=== PATIENT | female | born 1970 | race Caucasian/White ===

== ENCOUNTER 2021-08-05 21:57 | Inpatient (IN) ==
[2021-08-06] MEDS ORDERED: Ondansetron 4 MG/2 ML VIAL IVP PRN (02:01)
[2021-08-06] MEDS ORDERED: Naloxone 0.4 MG/ML INJ IVP PRN (02:01)
[2021-08-06] MEDS ORDERED: Melatonin 3 MG TABLET PO PRN (02:01)
[2021-08-06] MEDS ORDERED: *HR* OxyCODONE Immed Rel 5 MG TABLET PO PRN (02:01)
[2021-08-06] MEDS ORDERED: *HR* Promethazine 25 MG/ML VIAL IM PRN (02:01)
[2021-08-06] MEDS ORDERED: *HR* HYDROcodone/Acet 5/325 mg TABLET PO PRN (02:01)
[2021-08-06] MEDS ORDERED: Remdesivir 200 MG in 0.9 % Sodium Chloride 100 ML IVPB ONE (04:00)
[2021-08-06] MEDS: Acetaminophen 325 MG TABLET PO PRN ×3 (04:20→21:54)
[2021-08-06] MEDS: *HR* Enoxaparin 40 MG/0.4 ML SYRINGE SQ SCH (05:16)
[2021-08-06 06:33] LABS: Albumin/Globulin Ratio 1.1 (1.1-2.2); Bilirubin,Total 0.5 mg/dL (0.3-1.0); Calcium 8.5 mg/dL (8.6-10.3); Globulin 3.7 g/dL (2.4-3.5); Magnesium 2.1 mg/dL (1.6-2.6); Potassium 3.8 mEq/L (3.5-5.1); Total Protein 7.7 g/dL (6.4-8.9)
[2021-08-06 06:48] LABS: Albumin/Globulin Ratio 1.1 (1.1-2.2); Bilirubin,Direct 0.3 mg/dL (0.0-0.2); Bilirubin,Indirect 0.2 mg/dL (0.0-1.0); Bilirubin,Total 0.5 mg/dL (0.3-1.0); Globulin 3.7 g/dL (2.4-3.5); Total Protein 7.7 g/dL (6.4-8.9)
[2021-08-06 07:21] LABS: Basophils % 0.2 %; Hematocrit 45.4 % (35.3-44.9); Hemoglobin 13.8 g/dL (11.5-15.4); Immature Granulocytes % 0.7 % (0-4); Lymphocytes # 0.6 K/mcL (0.6-4.6); Lymphocytes % 7.2 %; Mean Corpuscular HGB Conc 30.4 g/dL (31.6-35.5); Mean Corpuscular Hemoglobin 27.5 pg (28.0-33.3); Mean Corpuscular Volume 90.4 fL (83.0-100.0); Mean Platelet Volume 10.1 fL (9.4-12.4); Monocytes # 0.2 K/mcL (0.0-1.3); Monocytes % 2.9 %; Neutrophils # 7.4 K/mcL (1.6-8.9); Platelet Count 209 K/mcL (140-400); Red Blood Count 5.02 M/mcL (3.82-4.97); Red Cell Distribution Width 15.8 % (11.5-14.5); White Blood Count 8.3 K/mcL (4.3-11.1)
[2021-08-06 07:23] LABS: INR 1.2
[2021-08-06] MEDS: Dexamethasone Sodium Phos/PF 10 MG/ML VIAL IVP SCH (08:07)
[2021-08-06] MEDS ORDERED: Furosemide 40 MG/4 ML VIAL IVP ONE (08:21)
[2021-08-06] MEDS: Aspirin 81 MG TAB.CHEW PO SCH (08:33)
[2021-08-06] MEDS ORDERED: Dexamethasone Sodium Phos/PF 10 MG/ML VIAL IVP SCH (09:00)
[2021-08-06] MEDS ORDERED: Lidocaine -MPF 1% 5 ML AMPUL INFILT ONE (13:07)
[2021-08-07] MEDS: Remdesivir 100 MG in 0.9 % Sodium Chloride 100 ML IVPB SCH (04:45)
[2021-08-07] MEDS: Acetaminophen 325 MG TABLET PO PRN (05:06)
[2021-08-07] MEDS: *HR* Enoxaparin 40 MG/0.4 ML SYRINGE SQ SCH (05:17)
[2021-08-07] MEDS: Dexamethasone Sodium Phos/PF 10 MG/ML VIAL IVP SCH (08:37)
[2021-08-07] MEDS: Cholecalciferol (D-3) 1,000 UNIT (25MCG) TABLET PO SCH (08:38)
[2021-08-07] MEDS: Aspirin 81 MG TAB.CHEW PO SCH (08:38)
[2021-08-07] MEDS ORDERED: Saline Nasal Spray 44 ML BOTTLE NS PRN (11:28)
[2021-08-07 11:44] LABS: Albumin 3.9 g/dL (3.5-5.7); Bilirubin,Direct 0.2 mg/dL (0.0-0.2); Bilirubin,Indirect 0.3 mg/dL (0.0-1.0); Bilirubin,Total 0.5 mg/dL (0.3-1.0); Globulin 3.9 g/dL (2.4-3.5); Total Protein 7.8 g/dL (6.4-8.9)
[2021-08-07 13:34] LABS: Hematocrit 47.6 % (35.3-44.9); Hemoglobin 14.5 g/dL (11.5-15.4); Mean Corpuscular HGB Conc 30.5 g/dL (31.6-35.5); Mean Corpuscular Hemoglobin 27.9 pg (28.0-33.3); Mean Corpuscular Volume 91.7 fL (83.0-100.0); Mean Platelet Volume 10.7 fL (9.4-12.4); Platelet Count 255 K/mcL (140-400); Red Blood Count 5.19 M/mcL (3.82-4.97); Red Cell Distribution Width 15.9 % (11.5-14.5); White Blood Count 6.3 K/mcL (4.3-11.1)
[2021-08-07 13:43] LABS: Calcium 8.7 mg/dL (8.6-10.3); Magnesium 2.4 mg/dL (1.6-2.6); Potassium 4.4 mEq/L (3.5-5.1)
[2021-08-07] MEDS ORDERED: *HR* Succinylcholine 200 MG/10 ML VIAL IVP ONE (14:21)
[2021-08-07] MEDS ORDERED: *HR* Propofol 200 MG/20 ML VIAL IVP ONE (14:21)
[2021-08-07] MEDS ORDERED: *HR* Etomidate 20 MG/10 ML AMPUL IVP ONE ×2 (14:21→15:59)
[2021-08-07] MEDS ORDERED: *HR* Midazolam HCl 5 MG/5 ML VIAL IVP ONE ×2 (14:21→16:00)
[2021-08-07] MEDS ORDERED: *HR* FentaNYL (PF) 100 MCG/2 ML VIAL IVP ONE (15:55)
[2021-08-07] MEDS ORDERED: Artificial Tears SOLN 15 ML BOTTLE BOTH EYES PRN (16:24)
[2021-08-07] MEDS: FentaNYL (PF) 1,000 MCG/100 ML IV.SOLN IVC SCH ×2 (16:26→22:16)
[2021-08-07] MEDS ORDERED: *HR* Heparin 5,000 UNIT/ML VIAL IVP PRN ×2 (16:27)
[2021-08-07 16:35] LABS: ABG Base Excess 11 mEq/L (-2 to 3); ABG HCO3 43 mEq/L (21-27); ABG Oxygen Saturation 74 % (95-98); ABG PCO2 86 mmHg (35-45); ABG PH 7.31 pH Units (7.32-7.45); ABG PO2 46 mmHg (85-104); ABG TCO2 46 mEq/L (20-26)
[2021-08-07] MEDS: Heparin 25,000 UNIT/250 ML 25,000 UNIT/250 ML IV.SOLN IVC SCH (17:10)
[2021-08-07] MEDS: Pantoprazole 40 MG VIAL IVP SCH (17:10)
[2021-08-07] MEDS: Norepinephrine 4 MG/254 ML IV.SOLN IVC SCH (17:11)
[2021-08-07] MEDS ORDERED: 0.9 % Sodium Chloride 1,000 ML ONE (17:16)
[2021-08-07 17:50] LABS: Hematocrit 45.4 % (35.3-44.9); Hemoglobin 14.2 g/dL (11.5-15.4); Mean Corpuscular HGB Conc 31.3 g/dL (31.6-35.5); Mean Corpuscular Hemoglobin 28.3 pg (28.0-33.3); Mean Corpuscular Volume 90.4 fL (83.0-100.0); Mean Platelet Volume 10.4 fL (9.4-12.4); Platelet Count 268 K/mcL (140-400); Red Blood Count 5.02 M/mcL (3.82-4.97); Red Cell Distribution Width 15.7 % (11.5-14.5); White Blood Count 6.1 K/mcL (4.3-11.1)
[2021-08-07] MEDS ORDERED: *HR* Enoxaparin 40 MG/0.4 ML SYRINGE SQ SCH (18:00)
[2021-08-07 18:05] LABS: Heparin anti-factor XA UFH 0.08 IU/mL (0.30-0.70); INR 1.1; Prothrombin Time 12.1 Seconds (9.4-12.1)
[2021-08-07] MEDS: Midazolam HCl 50 MG/100 ML IV.SOLN IVC SCH (18:10)
[2021-08-07 18:36] LABS: ABG Base Excess 8 mEq/L (-2 to 3); ABG HCO3 32 mEq/L (21-27); ABG Oxygen Saturation 75 % (95-98); ABG PCO2 41 mmHg (35-45); ABG PO2 37 mmHg (85-104); ABG TCO2 33 mEq/L (20-26); Blood Gas VT 420 cc
[2021-08-07] MEDS: Furosemide 40 MG/4 ML VIAL IVP SCH (19:37)
[2021-08-07] MEDS: Chlorhexidine Rinse 15 ML MOUTHWASH MM SCH (19:37)
[2021-08-07] MEDS: Artificial Tears SOLN 15 ML BOTTLE BOTH EYES SCH ×2 (19:37→23:19)
[2021-08-08] MEDS: Norepinephrine 4 MG/254 ML IV.SOLN IVC SCH ×4 (01:48→21:19)
[2021-08-08] MEDS: Remdesivir 100 MG in 0.9 % Sodium Chloride 100 ML IVPB SCH (02:15)
[2021-08-08 03:49] LABS: Hematocrit 43.7 % (35.3-44.9); Hemoglobin 13.7 g/dL (11.5-15.4); Mean Corpuscular HGB Conc 31.4 g/dL (31.6-35.5); Mean Corpuscular Hemoglobin 27.7 pg (28.0-33.3); Mean Corpuscular Volume 88.5 fL (83.0-100.0); Mean Platelet Volume 10.3 fL (9.4-12.4); Platelet Count 291 K/mcL (140-400); Red Blood Count 4.94 M/mcL (3.82-4.97); Red Cell Distribution Width 15.4 % (11.5-14.5)
[2021-08-08 04:07] LABS: Albumin 2.8 g/dL (3.5-5.7); Bilirubin,Direct 0.2 mg/dL (0.0-0.2); Bilirubin,Indirect 0.4 mg/dL (0.0-1.0); Bilirubin,Total 0.6 mg/dL (0.3-1.0); Globulin 2.9 g/dL (2.4-3.5); Total Protein 5.7 g/dL (6.4-8.9)
[2021-08-08] MEDS: Artificial Tears SOLN 15 ML BOTTLE BOTH EYES SCH ×8 (04:10→21:20)
[2021-08-08 05:44] LABS: ABG Base Excess 10 mEq/L (-2 to 3); ABG HCO3 32 mEq/L (21-27); ABG Oxygen Saturation 83 % (95-98); ABG PCO2 34 mmHg (35-45); ABG PH 7.58 pH Units (7.32-7.45); ABG PO2 39 mmHg (85-104); ABG TCO2 33 mEq/L (20-26); Blood Gas Modality AF; Blood Gas VT 420 cc
[2021-08-08] MEDS: Heparin 25,000 UNIT/250 ML 25,000 UNIT/250 ML IV.SOLN IVC SCH ×3 (06:20→21:20)
[2021-08-08 06:58] LABS: Albumin 3.7 g/dL (3.5-5.7); Albumin/Globulin Ratio 1.1 (1.1-2.2); Bilirubin,Total 0.8 mg/dL (0.3-1.0); Calcium 8.6 mg/dL (8.6-10.3); Globulin 3.5 g/dL (2.4-3.5); Magnesium 2.1 mg/dL (1.6-2.6); Potassium 3.8 mEq/L (3.5-5.1); Total Protein 7.2 g/dL (6.4-8.9)
[2021-08-08] MEDS: Dexamethasone Sodium Phos/PF 10 MG/ML VIAL IVP SCH (07:10)
[2021-08-08] MEDS: Pantoprazole 40 MG VIAL IVP SCH (07:10)
[2021-08-08] MEDS: Furosemide 40 MG/4 ML VIAL IVP SCH ×2 (07:10→20:13)
[2021-08-08] MEDS: Cholecalciferol (D-3) 1,000 UNIT (25MCG) TABLET PO SCH (07:10)
[2021-08-08] MEDS: Chlorhexidine Rinse 15 ML MOUTHWASH MM SCH ×2 (07:10→20:13)
[2021-08-08] MEDS: FentaNYL (PF) 1,000 MCG/100 ML IV.SOLN IVC SCH ×3 (08:20→21:18)
[2021-08-08] MEDS: Cisatracurium 200 MG in 0.9 % Sodium Chloride 180 ML IVC SCH ×3 (09:53→20:13)
[2021-08-08] MEDS: Midazolam HCl 50 MG/100 ML IV.SOLN IVC SCH ×2 (09:55→19:05)
[2021-08-08 14:12] LABS: ABG Base Excess 9 mEq/L (-2 to 3); ABG HCO3 31 mEq/L (21-27); ABG Oxygen Saturation 92 % (95-98); ABG PCO2 34 mmHg (35-45); ABG PH 7.57 pH Units (7.32-7.45); ABG PO2 55 mmHg (85-104); ABG TCO2 32 mEq/L (20-26); Blood Gas VT 420 cc
[2021-08-08 17:33] LABS: ABG Base Excess 9 mEq/L (-2 to 3); ABG HCO3 33 mEq/L (21-27); ABG Oxygen Saturation 91 % (95-98); ABG PCO2 41 mmHg (35-45); ABG PH 7.51 pH Units (7.32-7.45); ABG PO2 54 mmHg (85-104); ABG TCO2 34 mEq/L (20-26); Blood Gas VT 400 cc
[2021-08-09] MEDS: Cisatracurium 200 MG in 0.9 % Sodium Chloride 180 ML IVC SCH ×5 (01:07→21:28)
[2021-08-09] MEDS: Remdesivir 100 MG in 0.9 % Sodium Chloride 100 ML IVPB SCH (02:01)
[2021-08-09] MEDS: FentaNYL (PF) 1,000 MCG/100 ML IV.SOLN IVC SCH ×3 (03:07→19:54)
[2021-08-09] MEDS: Midazolam HCl 50 MG/100 ML IV.SOLN IVC SCH ×2 (03:07→15:42)
[2021-08-09 03:25] LABS: VBG Ionized Calcium 0.95 mmol/L (1.15-1.35)
[2021-08-09 03:27] LABS: Basophils % 0.1 %; Hematocrit 44.9 % (35.3-44.9); Hemoglobin 14.2 g/dL (11.5-15.4); Lymphocytes # 0.5 K/mcL (0.6-4.6); Lymphocytes % 6.8 %; Mean Corpuscular HGB Conc 31.6 g/dL (31.6-35.5); Mean Corpuscular Hemoglobin 27.4 pg (28.0-33.3); Mean Corpuscular Volume 86.7 fL (83.0-100.0); Mean Platelet Volume 9.9 fL (9.4-12.4); Monocytes # 0.5 K/mcL (0.0-1.3); Monocytes % 6.6 %; Neutrophils # 6.8 K/mcL (1.6-8.9); Nucleated Red Blood Cells 0.3 /100 WBC (0); Platelet Count 285 K/mcL (140-400); Red Blood Count 5.18 M/mcL (3.82-4.97); Red Cell Distribution Width 15.8 % (11.5-14.5); Segmented Neutrophils % 85.5 %
[2021-08-09 03:41] LABS: Alanine Aminotransferase 32 Units/L (7-52); Albumin 3.4 g/dL (3.5-5.7); Albumin/Globulin Ratio 0.9 (1.1-2.2); Alkaline Phosphatase 59 Units/L (34-104); Aspartate Amino Transferase 53 Units/L (13-39); BUN/Creatinine Ratio 26 (6-26); Bilirubin,Direct 0.6 mg/dL (0.0-0.2); Bilirubin,Indirect 0.4 mg/dL (0.0-1.0); Blood Urea Nitrogen 30 mg/dL (6-20); Calcium 7.9 mg/dL (8.6-10.3); Carbon Dioxide 35 mEq/L (23-29); Chloride 94 mEq/L (98-107); Globulin 3.6 g/dL (2.4-3.5); Glucose 199 mg/dL (70-105); Osmolality,Calculated 300 (280-300); Potassium 3.1 mEq/L (3.5-5.1); Sodium 139 mEq/L (136-145); eGFR For African Americans > 60 (> 60); eGFR For Non-African Americans 50 (> 60)
[2021-08-09 03:57] LABS: Ferritin 105 ng/mL (10-120)
[2021-08-09 04:07] LABS: INR 1.1; Prothrombin Time 12.1 Seconds (9.4-12.1)
[2021-08-09] MEDS ORDERED: Potassium Chloride Elixir 20 MEQ/15 ML UDC GTUBE ONE (04:28)
[2021-08-09 04:53] LABS: ABG Base Excess 9 mEq/L (-2 to 3); ABG HCO3 37 mEq/L (21-27); ABG Oxygen Saturation 90 % (95-98); ABG PCO2 57 mmHg (35-45); ABG PH 7.41 pH Units (7.32-7.45); ABG PO2 59 mmHg (85-104); ABG TCO2 38 mEq/L (20-26); Blood Gas Modality AF; Blood Gas VT 400 cc
[2021-08-09] MEDS ORDERED: Calcium Chloride 2,000 MG in 0.9 % Sodium Chloride 100 ML IVPB ONE (05:15)
[2021-08-09] MEDS: Dexamethasone Sodium Phos/PF 10 MG/ML VIAL IVP SCH (07:40)
[2021-08-09] MEDS: Pantoprazole 40 MG VIAL IVP SCH (07:40)
[2021-08-09] MEDS: Artificial Tears SOLN 15 ML BOTTLE BOTH EYES SCH ×5 (07:40→23:11)
[2021-08-09] MEDS: Cholecalciferol (D-3) 1,000 UNIT (25MCG) TABLET PO SCH (07:40)
[2021-08-09] MEDS: Furosemide 40 MG/4 ML VIAL IVP SCH ×2 (07:40→20:01)
[2021-08-09] MEDS: Chlorhexidine Rinse 15 ML MOUTHWASH MM SCH ×2 (07:40→20:01)
[2021-08-09] MEDS ORDERED: Calcium Gluconate 1gm/50mL 1 GM/50 ML BAG IVPB PRN (10:20)
[2021-08-09] MEDS: Heparin 25,000 UNIT/250 ML 25,000 UNIT/250 ML IV.SOLN IVC SCH (11:28)
[2021-08-09] MEDS: Norepinephrine 4 MG/254 ML IV.SOLN IVC SCH ×2 (15:05→18:17)
[2021-08-09] MEDS: Potassium Chloride Elixir 20 MEQ/15 ML UDC GTUBE SCH (17:51)
[2021-08-09] MEDS ORDERED: Dextrose Gel 15 GM/37.5 ML TUBE PO PRN ×2 (22:32)
[2021-08-09] MEDS ORDERED: D5% in Water 1,000 ML IVC PRN (22:32)
[2021-08-09] MEDS ORDERED: *HR* Dextrose 50 % in Water (Syg) 50 ML SYRINGE IVP PRN (22:32)
[2021-08-09] MEDS: Insulin LISPRO 300 UNITS/3 ML VIAL SUBQ SCH (23:11)
[2021-08-10] MEDS: Cisatracurium 400 MG in 0.9 % Sodium Chloride 360 ML IVC SCH ×2 (01:16→13:16)
[2021-08-10] MEDS: Heparin 25,000 UNIT/250 ML 25,000 UNIT/250 ML IV.SOLN IVC SCH ×3 (01:17→22:27)
[2021-08-10] MEDS: Midazolam HCl 50 MG/100 ML IV.SOLN IVC SCH ×2 (01:34→16:02)
[2021-08-10] MEDS: Remdesivir 100 MG in 0.9 % Sodium Chloride 100 ML IVPB SCH (02:01)
[2021-08-10] MEDS: Norepinephrine 4 MG/254 ML IV.SOLN IVC SCH ×3 (02:03→15:58)
[2021-08-10] MEDS: Artificial Tears SOLN 15 ML BOTTLE BOTH EYES SCH ×5 (03:03→19:30)
[2021-08-10 03:43] LABS: VBG Ionized Calcium 1.04 mmol/L (1.15-1.35)
[2021-08-10 03:53] LABS: Basophils # 0.1 K/mcL (0.0-0.2); Basophils % 0.4 %; Eosinophils # 0.1 K/mcL (0.0-0.6); Eosinophils % 0.8 %; Hematocrit 47.7 % (35.3-44.9); Hemoglobin 14.8 g/dL (11.5-15.4); Immature Granulocytes % 1.1 % (0-4); Lymphocytes # 0.7 K/mcL (0.6-4.6); Lymphocytes % 5.3 %; Mean Corpuscular Hemoglobin 27.4 pg (28.0-33.3); Mean Corpuscular Volume 88.2 fL (83.0-100.0); Mean Platelet Volume 10.2 fL (9.4-12.4); Monocytes # 0.7 K/mcL (0.0-1.3); Monocytes % 4.9 %; Neutrophils # 11.8 K/mcL (1.6-8.9); Platelet Count 306 K/mcL (140-400); Red Blood Count 5.41 M/mcL (3.82-4.97); Red Cell Distribution Width 16.2 % (11.5-14.5); Segmented Neutrophils % 87.5 %
[2021-08-10 03:55] LABS: White Blood Count 13.5 K/mcL (4.3-11.1)
[2021-08-10 04:08] LABS: ABG Base Excess 10 mEq/L (-2 to 3); ABG HCO3 38 mEq/L (21-27); ABG Oxygen Saturation 90 % (95-98); ABG PCO2 62 mmHg (35-45); ABG PH 7.39 pH Units (7.32-7.45); ABG PO2 61 mmHg (85-104); ABG TCO2 40 mEq/L (20-26); Blood Gas VT 400 cc
[2021-08-10 04:09] LABS: Alanine Aminotransferase 79 Units/L (7-52); Albumin 3.5 g/dL (3.5-5.7); Alkaline Phosphatase 59 Units/L (34-104); Aspartate Amino Transferase 98 Units/L (13-39); BUN/Creatinine Ratio 25 (6-26); Bilirubin,Total 1.2 mg/dL (0.3-1.0); Blood Urea Nitrogen 29 mg/dL (6-20); Calcium 8.3 mg/dL (8.6-10.3); Carbon Dioxide 36 mEq/L (23-29); Chloride 95 mEq/L (98-107); Globulin 3.5 g/dL (2.4-3.5); Glucose 185 mg/dL (70-105); Osmolality,Calculated 301 (280-300); Phosphorous 2.5 mg/dL (2.7-4.5); Potassium 3.6 mEq/L (3.5-5.1); Sodium 140 mEq/L (136-145); eGFR For African Americans > 60 (> 60); eGFR For Non-African Americans 50 (> 60)
[2021-08-10] MEDS: FentaNYL (PF) 1,000 MCG/100 ML IV.SOLN IVC SCH ×3 (05:07→20:11)
[2021-08-10] MEDS: Insulin LISPRO 300 UNITS/3 ML VIAL SUBQ SCH ×3 (05:19→17:03)
[2021-08-10] MEDS: Calcium Gluconate 1gm/50mL 1 GM/50 ML BAG IVPB SCH ×2 (05:19→06:20)
[2021-08-10] MEDS: Chlorhexidine Rinse 15 ML MOUTHWASH MM SCH ×2 (07:45→19:30)
[2021-08-10] MEDS: Dexamethasone Sodium Phos/PF 10 MG/ML VIAL IVP SCH (07:46)
[2021-08-10] MEDS: Pantoprazole 40 MG VIAL IVP SCH (07:46)
[2021-08-10] MEDS: Potassium Chloride Elixir 20 MEQ/15 ML UDC GTUBE SCH (07:46)
[2021-08-10] MEDS: Cholecalciferol (D-3) 1,000 UNIT (25MCG) TABLET PO SCH (07:47)
[2021-08-10] MEDS: Furosemide 40 MG/4 ML VIAL IVP SCH ×2 (07:47→19:30)
[2021-08-10 10:10] LABS: ABG Base Excess 12 mEq/L (-2 to 3); ABG HCO3 41 mEq/L (21-27); ABG Oxygen Saturation 83 % (95-98); ABG PCO2 66 mmHg (35-45); ABG PO2 49 mmHg (85-104); ABG TCO2 43 mEq/L (20-26); Blood Gas Modality AF; Blood Gas VT 270 cc
[2021-08-10] MEDS ORDERED: *HR* Atropine Sulfate 1 MG/10 ML SYRINGE ONE (23:33)
[2021-08-11] MEDS: Cisatracurium 400 MG in 0.9 % Sodium Chloride 360 ML IVC SCH ×2 (00:01→13:52)
[2021-08-11] MEDS: Artificial Tears SOLN 15 ML BOTTLE BOTH EYES SCH ×7 (00:03→23:03)
[2021-08-11] MEDS: Insulin LISPRO 300 UNITS/3 ML VIAL SUBQ SCH ×5 (00:03→23:03)
[2021-08-11] MEDS: FentaNYL (PF) 1,000 MCG/100 ML IV.SOLN IVC SCH ×5 (01:30→21:52)
[2021-08-11 04:13] LABS: ABG Base Excess 10 mEq/L (-2 to 3); ABG HCO3 37 mEq/L (21-27); ABG Oxygen Saturation 89 % (95-98); ABG PCO2 59 mmHg (35-45); ABG PH 7.41 pH Units (7.32-7.45); ABG PO2 57 mmHg (85-104); ABG TCO2 39 mEq/L (20-26); Blood Gas VT 270 cc
[2021-08-11 04:55] LABS: Heparin anti-factor XA UFH 0.39 IU/mL (0.30-0.70)
[2021-08-11 04:57] LABS: Basophils # 0.1 K/mcL (0.0-0.2); Basophils % 0.3 %; Eosinophils % 0.1 %; Hematocrit 49.3 % (35.3-44.9); Hemoglobin 15.7 g/dL (11.5-15.4); Immature Granulocytes % 2.6 % (0-4); Lymphocytes # 0.9 K/mcL (0.6-4.6); Lymphocytes % 4.9 %; Mean Corpuscular HGB Conc 31.8 g/dL (31.6-35.5); Mean Corpuscular Hemoglobin 28.2 pg (28.0-33.3); Mean Corpuscular Volume 88.7 fL (83.0-100.0); Mean Platelet Volume 10.4 fL (9.4-12.4); Monocytes # 0.8 K/mcL (0.0-1.3); Monocytes % 4.7 %; Neutrophils # 15.5 K/mcL (1.6-8.9); Nucleated Red Blood Cells 0.1 /100 WBC (0); Platelet Count 292 K/mcL (140-400); Red Blood Count 5.56 M/mcL (3.82-4.97); Red Cell Distribution Width 16.5 % (11.5-14.5); Segmented Neutrophils % 87.4 %; White Blood Count 17.7 K/mcL (4.3-11.1)
[2021-08-11 05:09] LABS: Calcium 8.5 mg/dL (8.6-10.3); Potassium 3.4 mEq/L (3.5-5.1)
[2021-08-11] MEDS: Cholecalciferol (D-3) 1,000 UNIT (25MCG) TABLET PO SCH (07:40)
[2021-08-11] MEDS: Chlorhexidine Rinse 15 ML MOUTHWASH MM SCH ×2 (07:40→19:42)
[2021-08-11] MEDS: Norepinephrine 4 MG/254 ML IV.SOLN IVC SCH ×3 (07:40→20:00)
[2021-08-11] MEDS: Potassium Chloride Elixir 20 MEQ/15 ML UDC GTUBE SCH (07:41)
[2021-08-11] MEDS: Pantoprazole 40 MG VIAL IVP SCH (07:41)
[2021-08-11] MEDS: Dexamethasone Sodium Phos/PF 10 MG/ML VIAL IVP SCH (07:41)
[2021-08-11] MEDS: Furosemide 40 MG/4 ML VIAL IVP SCH ×2 (07:41→19:43)
[2021-08-11] MEDS: Midazolam HCl 50 MG/100 ML IV.SOLN IVC SCH ×2 (07:42→22:25)
[2021-08-11] MEDS ORDERED: Potassium Phosphate 44 MEQ in 0.9 % Sodium Chloride 250 ML IVPB PRN (08:43)
[2021-08-11] MEDS: Heparin 25,000 UNIT/250 ML 25,000 UNIT/250 ML IV.SOLN IVC SCH (17:11)
[2021-08-11 19:08] LABS: Magnesium 1.6 mg/dL (1.6-2.6); Phosphorous 3.1 mg/dL (2.7-4.5); Potassium 3.7 mEq/L (3.5-5.1)
[2021-08-11] MEDS: Phenylephrine 10 MG in 0.9 % Sodium Chloride 250 ML IVC SCH (23:01)
[2021-08-11] MEDS: Potassium Chloride 40 MEQ/200 ML BAG IVPB PRN (23:04)
[2021-08-12] MEDS: Cisatracurium 400 MG in 0.9 % Sodium Chloride 360 ML IVC SCH ×3 (00:16→22:26)
[2021-08-12] MEDS: FentaNYL (PF) 1,000 MCG/100 ML IV.SOLN IVC SCH ×5 (02:52→22:50)
[2021-08-12 04:31] LABS: Hematocrit 53.1 % (35.3-44.9); Hemoglobin 16.5 g/dL (11.5-15.4); Mean Corpuscular HGB Conc 31.1 g/dL (31.6-35.5); Mean Corpuscular Hemoglobin 27.9 pg (28.0-33.3); Mean Corpuscular Volume 89.8 fL (83.0-100.0); Mean Platelet Volume 10.5 fL (9.4-12.4); Nucleated Red Blood Cells 0.2 /100 WBC (0); Platelet Count 363 K/mcL (140-400); Red Blood Count 5.91 M/mcL (3.82-4.97); Red Cell Distribution Width 17.2 % (11.5-14.5)
[2021-08-12 04:33] LABS: White Blood Count 29.9 K/mcL (4.3-11.1)
[2021-08-12 04:34] LABS: VBG Ionized Calcium 1.03 mmol/L (1.15-1.35)
[2021-08-12 04:36] LABS: Heparin anti-factor XA UFH 0.45 IU/mL (0.30-0.70)
[2021-08-12 04:49] LABS: Lymphocytes # 1.2 K/mcL (0.6-4.6); Monocytes # 0.6 K/mcL (0.0-1.3); Neutrophils # 25.1 K/mcL (1.6-8.9); Platelet Estimate Normal (Normal); Toxic Granulation Present (Not Present); Toxic Vacuolation Present (Not Present)
[2021-08-12 05:05] LABS: Calcium 8.5 mg/dL (8.6-10.3); Magnesium 1.5 mg/dL (1.6-2.6); Phosphorous 3.1 mg/dL (2.7-4.5); Potassium 3.8 mEq/L (3.5-5.1)
[2021-08-12] MEDS: Artificial Tears SOLN 15 ML BOTTLE BOTH EYES SCH ×5 (05:06→19:41)
[2021-08-12] MEDS: Norepinephrine 4 MG/254 ML IV.SOLN IVC SCH (05:15)
[2021-08-12 05:18] LABS: Thyroid Stimulating Hormone 38.554 mcIU/mL (0.340-5.600)
[2021-08-12] MEDS: Insulin LISPRO 300 UNITS/3 ML VIAL SUBQ SCH ×4 (05:29→20:25)
[2021-08-12 05:37] LABS: ABG Base Excess 7 mEq/L (-2 to 3); ABG HCO3 36 mEq/L (21-27); ABG Oxygen Saturation 84 % (95-98); ABG PCO2 61 mmHg (35-45); ABG PH 7.37 pH Units (7.32-7.45); ABG PO2 52 mmHg (85-104); ABG TCO2 38 mEq/L (20-26); Blood Gas Modality AF; Blood Gas VT 350 cc
[2021-08-12] MEDS: Potassium Chloride 40 MEQ/200 ML BAG IVPB PRN (05:48)
[2021-08-12] MEDS: Phenylephrine 10 MG in 0.9 % Sodium Chloride 250 ML IVC SCH (06:13)
[2021-08-12] MEDS: Pantoprazole 40 MG VIAL IVP SCH (07:28)
[2021-08-12] MEDS: Furosemide 40 MG/4 ML VIAL IVP SCH ×3 (07:28→19:41)
[2021-08-12] MEDS: Chlorhexidine Rinse 15 ML MOUTHWASH MM SCH ×2 (07:28→19:41)
[2021-08-12] MEDS: Potassium Chloride Elixir 20 MEQ/15 ML UDC GTUBE SCH (07:28)
[2021-08-12] MEDS: Dexamethasone Sodium Phos/PF 10 MG/ML VIAL IVP SCH (07:29)
[2021-08-12] MEDS: Norepinephrine 16 MG in 0.9 % Sodium Chloride 500 ML IVC SCH ×2 (07:30→15:03)
[2021-08-12] MEDS: Cholecalciferol (D-3) 1,000 UNIT (25MCG) TABLET PO SCH (07:34)
[2021-08-12] MEDS: Phenylephrine 50 MG in 0.9 % Sodium Chloride 250 ML IVC SCH ×4 (08:04→23:46)
[2021-08-12 08:12] LABS: ABG Base Excess 8 mEq/L (-2 to 3); ABG HCO3 36 mEq/L (21-27); ABG Oxygen Saturation 87 % (95-98); ABG PCO2 61 mmHg (35-45); ABG PH 7.39 pH Units (7.32-7.45); ABG PO2 55 mmHg (85-104); ABG TCO2 38 mEq/L (20-26); Blood Gas VT 350 cc
[2021-08-12] MEDS: Sodium Bicarbonate 150 MEQ in Water for inj. (sterile) 1,000 ML IVC SCH ×2 (09:29→22:15)
[2021-08-12] MEDS ORDERED: D10% in Water 500 ML IVC PRN (12:04)
[2021-08-12] MEDS: Midazolam HCl 50 MG/100 ML IV.SOLN IVC SCH (12:43)
[2021-08-12] MEDS: Heparin 25,000 UNIT/250 ML 25,000 UNIT/250 ML IV.SOLN IVC SCH ×2 (13:09→13:11)
[2021-08-12 14:57] LABS: Magnesium 1.7 mg/dL (1.6-2.6); Potassium 4.4 mEq/L (3.5-5.1)
[2021-08-12] MEDS ORDERED: Vancomycin 2,000 MG/520 ML IV.SOLN IVPB SCH (15:00)
[2021-08-12] MEDS ORDERED: Levothyroxine Sodium 100 MCG VIAL IVP SCH (15:00)
[2021-08-12 16:11] LABS: Bilirubin,Urine Negative (Negative); Blood,Urine Moderate (Negative); Clarity,Urine Turbid (Clear); Color,Urine Yellow (Yellow); Glucose,Urine (UA) Normal (Normal); Ketones,Urine 10 mg/dL (Negative); Leukocyte Esterase,Urine Moderate (Negative); Mucus,Urine Few per lpf (None-Few); Nitrite,Urine Negative (Negative); PH,Urine 6.5 pH Units (5.0-8.0); Protein,Urine 50 mg/dL (Neg-Trace); RBC,Urine 50-100 per hpf (0-3); Specific Gravity,Urine 1.019 (1.010-1.025); Squamous Epithelial Cell,Urine Few per hpf (None-Few); Urobilinogen,Urine Normal (Normal); WBC,Urine 30-50 per hpf (0-3)
[2021-08-12] MEDS ORDERED: Clinimix E 5%-15% SOLUTION 2,000 ML with MVI, adult with vitamin K 10 ML IVC SCH (17:00)
[2021-08-12] MEDS: Acetaminophen 325 MG TABLET PO PRN (17:27)
[2021-08-12] MEDS: Piperacillin/Tazobactam 3.375 GM in 0.9 % Sodium Chloride Mini Bag 100 ML IVPB SCH (19:40)
[2021-08-12] MEDS ORDERED: Insulin DETEMIR 100 UNIT/ML X5UNITS SUBQ SCH (21:00)
[2021-08-12 22:21] LABS: ABG Base Excess 7 mEq/L (-2 to 3); ABG HCO3 34 mEq/L (21-27); ABG Oxygen Saturation 76 % (95-98); ABG PCO2 52 mmHg (35-45); ABG PH 7.42 pH Units (7.32-7.45); ABG PO2 41 mmHg (85-104); ABG TCO2 35 mEq/L (20-26); Blood Gas Modality AF; Blood Gas VT 350 cc
[2021-08-12 22:26] VITALS: TEMP 100.6
[2021-08-13] MEDS: Midazolam HCl 50 MG/100 ML IV.SOLN IVC SCH (00:05)
[2021-08-13] MEDS: Norepinephrine 16 MG in 0.9 % Sodium Chloride 500 ML IVC SCH (00:18)
[2021-08-13 00:49] VITALS: PULSE 78; O2SAT 82
[2021-08-13] MEDS: Artificial Tears SOLN 15 ML BOTTLE BOTH EYES SCH (00:49)
[2021-08-13] MEDS: Insulin LISPRO 300 UNITS/3 ML VIAL SUBQ SCH (01:11)
[2021-08-13] MEDS: Piperacillin/Tazobactam 3.375 GM in 0.9 % Sodium Chloride Mini Bag 100 ML IVPB SCH (01:11)
[2021-08-13 01:39] VITALS: BP 102/60
[2021-08-14] MEDS ORDERED: Levothyroxine Sodium 100 MCG VIAL IVP SCH (06:00)
== END 2021-08-13 04:55 | disposition expired | DRG 720 ==
LOC: 2NNU → SUATTDRO 08-06 00:58 → ICNU 08-07 15:55
PROVIDERS: ADMIT Family Medicine; ATTEND Internal Medicine